=== PATIENT | male | born 1980 | race Two or more races ===

== ENCOUNTER 2024-08-13 18:31 | Emergency (ER) | payer MEDICAID, SELFPAY ==
[2024-08-13 18:32] VITALS: BMI 31.4
--- NOTE | 2024-08-13 19:38 | PC.NURSE ---
pt was not fund outside and did not answer when name was called in the lobby.
--- NOTE | 2024-08-13 21:00 | PC.NURSE ---
NO ANSWER FOR CALL BACK TO MAIN ED
--- NOTE | 2024-08-13 22:00 | PC.NURSE ---
NO ANSWER FOR CALL BACK TO MAIN ED
--- NOTE | 2024-08-13 22:11 | PC.NURSE ---
no answer for revital
== END 2024-08-13 22:02 | disposition left against medical advice (07) ==
LOC: SERX 08-14 01:26
PROVIDERS: Emergency Provider Emergency Medicine
DX: Z53.21 Procedure and treatment not carried out due to patient leaving prior to being seen by health care provider (principal)

== ENCOUNTER 2024-09-15 22:08 | Emergency (ER) | payer MEDICAID, SELFPAY ==
[2024-09-15 22:09] VITALS: BMI 29.4
[2024-09-15 22:19] VITALS: BP 102/61; PULSE 80; RESP 18; TEMP 36.6; O2SAT 96
--- NOTE | 2024-09-15 22:30 | XR_ITS ---
Examination: PA lateral chest 2 views Technique: Upright PA lateral chest 2 views Exam date and time: September 15, 2020 4:11 PM Indications: Onset chest pain today. Findings: Mild enlargement cardiac contour No pneumonia or pulmonary edema The osseous structures are intact Impression: No pneumonia or pulmonary edema
--- NOTE | 2024-09-15 22:30 | EKG_ITS ---
[facility] Test Date: 2024-09-15 Pat Name: OSBALDO HERNADEZ Department: Room: - Gender: Male [employer]: : [id number] Requested By: Regino Vasquez Order Number: [id number] Reading MD: Regino Vasquez Measurements Intervals [place] Rate: 100 P: 55 OK: 209 QRS: -39 QRSD: 126 T: 69 QT: 449 QTc: 581 Interpretive Statements SINUS TACHYCARDIA POSSIBLE LEFT ATRIAL ENLARGEMENT [-0.1mV P WAVE IN V1/V2] MARKED LEFT AXIS DEVIATION [QRS AXIS < -30] POSSIBLE LEFT VENTRICULAR HYPERTROPHY [VOLTAGE CRITERIA PLUS LAE OR QRS WIDENING] NONSPECIFIC T-WAVE ABNORMALITY Compared to ECG 04/05/2022 11:22:44 Left-axis deviation now present T-wave abnormality now present Sinus rhythm no longer present /store/S0/[id number]/[id number].pdf
--- NOTE | 2024-09-15 22:31 | PD.EDRME ---
Rapid Medical Screening Exam [facility] Arrival date/time: 09/15/24 22:08 44M with history of HTN, drug/alcohol abuse, and possible CHF presents to ED with 2 days of CP, SOB, and fatigue/weakness. Chief Complaint: Chest Pain Vital signs: Vital Signs Temperature 98 F 09/15/24 22:19 Pulse Rate 80 09/15/24 22:19 Respiratory Rate 18 09/15/24 22:19 Blood Pressure 102/61 09/15/24 22:19 Pulse Oximetry (%) 96 09/15/24 22:19 Oxygen Delivery Method Room Air 09/15/24 22:19
[2024-09-15 23:18] LABS: Basophils % (Auto) 1 % (0-2.5); Eosinophils # (Auto) 0.2 Thou/mm3 (0.0-0.5); Eosinophils % (Auto) 3 % (0-10); Hematocrit 52.5 % (41.0-53.0); Hemoglobin 18.2 g/dL (13.5-16.0); Immature Granulocytes % (Auto) 1 % (0-0); Immature Granulocytes Auto 0.03 Thou/mm3 (0.00-0.00); Lymphocytes # (Auto) 1.3 Thou/mm3 (1.0-4.8); Lymphocytes % (Auto) 21 % (10-50); Mean Corpuscular HGB Conc 34.7 g/dl (31.0-37.0); Mean Corpuscular Hemoglobin 29.3 pg (25.0-35.0); Mean Corpuscular Volume 84 fL (80-100); Monocytes # (Auto) 0.5 Thou/mm3 (0.0-0.8); Monocytes % (Auto) 8 % (0-12); Neutrophils # (Auto) 4.3 Thou/mm3 (1.8-7.7); Neutrophils % (Auto) 67 % (37-80); Nucleated Red Blood Cell % 0 /100 WBC (0); Platelet Count 195 Thou/mm3 (140-440); Red Blood Count 6.22 Miln/mm3 (4.50-5.90); White Blood Count 6.3 Thou/mm3 (3.8-10.6)
[2024-09-15 23:34] LABS: Alanine Aminotransferase 81 U/L (10-49); Albumin, Serum 4.7 gm/dL (3.5-5.0); Albumin/Globulin Ratio 1.5 (1.2-2.2); Alkaline Phosphatase 184 U/L (46-116); Anion Gap 8 (7-16); Aspartate Amino Transferase 80 U/L (0-34); BUN/Creatinine Ratio 10 Ratio (12-20); Blood Urea Nitrogen 11 mg/dL (9-23); Calcium 9.6 mg/dL (8.3-10.6); Calcium (Corrected) 9.6 mg/dL (8.5-10.1); Carbon Dioxide 25.5 mMol/L (20.0-31.0); Chloride 101 mMol/L (98-107); Creatinine (Component) 1.1 mg/dL (0.6-1.3); Estimated Creatinine Clearance 99.1 mL/min (>60); Globulin 3.2 gm/dL (2.3-3.5); Glucose 92 mg/dL (74-106); Osmolality,Calculated 267 (275-295); Potassium 4.6 mMol/L (3.4-5.1); Sodium 134 mMol/L (136-145); Total Protein 7.9 gm/dL (5.7-8.2); Troponin I < 0.020 ng/mL (0.0-0.045); eGFR > 60 See Note
[2024-09-15 23:46] LABS: B-Type Natriuretic Peptide 83 pg/mL (0-100)
--- NOTE | 2024-09-16 00:51 | PC.NURSE ---
NO ANSWER FOR MAIN ED
--- NOTE | 2024-09-16 01:01 | PD.EDADDENDU ---
Emergency Room Addendum Addendum Narrative: When I went to see the patient, I was told the patient eloped. I did not see the patient or evaluate the patient. Marquez Wyman MD
--- NOTE | 2024-09-16 01:11 | PC.NURSE ---
CALLED PT IN ER LOBBY AND OUTSIDE AND NO ANSWER AT THIS TIME.
--- NOTE | 2024-09-16 01:26 | PC.NURSE ---
CALLED PT IN ER LOBBY AND OUTSIDE OF ER AND NO ANSWER
== END 2024-09-16 01:27 | disposition left against medical advice (07) ==
LOC: SERX 22:40
PROVIDERS: Physician Assistant; Emergency Provider Emergency Medicine; PCP Nurse Practitioner Family
DX: R07.9 Chest pain, unspecified (principal); R06.02 Shortness of breath; R00.0 Tachycardia, unspecified; Z53.29 Procedure and treatment not carried out because of patient's decision for other reasons
CPT/HCPCS: 36415; 71046; 80053; 83880; 84484; 85025; 93005; 99281

== ENCOUNTER 2025-02-11 07:31 | Emergency (ER) | payer SELFPAY ==
[2025-02-11 07:33] VITALS: BMI 29.7
[2025-02-11 07:42] VITALS: BP 151/84; PULSE 114; RESP 17; TEMP 36.8; O2SAT 98
--- NOTE | 2025-02-11 07:49 | XR_ITS ---
Examination: Tibia-Fibula, left , 2 views Technique: Tibia-fibula AP lateral 2 views Date and time of exam: February 11, 2025 0828 hours INDICATIONS: Lower leg swelling and pain today FINDINGS: Mild osteopenia. No fracture or dislocation. No cortical bone destruction Moderate osteoarthritis tibiotalar joint IMPRESSION: Moderate osteoarthritis tibiotalar joint
--- NOTE | 2025-02-11 07:49 | XR_ITS ---
Examination: Foot, left, 3 views Technique: AP, oblique, lateral views foot, 3 views Date and time of exam: February 11, 2025 0820 hours INDICATIONS: Foot swelling and pain today no trauma FINDINGS: Old deformity bases proximal phalanges third and fourth digits Mild narrowing first tarsometatarsal joint, first metatarsophalangeal joint No cortical bone destruction No foreign body No acute fracture Significant osteoarthritis tibiotalar joint with sclerotic and cystic changes in the talus IMPRESSION: Significant osteoarthritis tibiotalar joint
--- NOTE | 2025-02-11 07:49 | XR_ITS ---
Examination: Duplex scan of the lower extremity, unilateral left Date and time of exam: February 11, 2025 0845 hours INDICATIONS: Left leg swelling and pain beginning today Technique: Duplex scan of the extremity veins using B-mode/grayscale imaging and Doppler spectral analysis and color flow Attention is directed to internal echogenicity, compression and augmentation involving these veins, color flow assessment, spectral analysis Findings: Major deep venous structures in the extremity demonstrate normal course and caliber. There is no evidence of deep vein thrombosis. Normal color flow and spectral analysis Impression: Negative for DVT..
--- NOTE | 2025-02-11 07:50 | XR_ITS ---
Examination: AP lateral chest 2 views TECHNIQUE: Sitting AP lateral chest 2 views Exam date and time: February 11, 2025 0813 hours Comparison September 15, 2024 INDICATIONS: Shortness of breath today. FINDINGS: Minimal opacity in the lingular segment left upper lobe Right lung clear Normal heart size IMPRESSION: Atelectasis versus early pneumonia in the lingular segment left upper lobe, clinical correlation advised
[2025-02-11 09:37] LABS: Basophils # (Auto) 0.1 Thou/mm3 (0.0-0.2); Basophils % (Auto) 1 % (0-2.5); Eosinophils % (Auto) 0 % (0-10); Hematocrit 49.1 % (41.0-53.0); Hemoglobin 16.8 g/dL (13.5-16.0); Immature Granulocytes % (Auto) 0 % (0-0); Immature Granulocytes Auto 0.04 Thou/mm3 (0.00-0.00); Lymphocytes # (Auto) 1.3 Thou/mm3 (1.0-4.8); Lymphocytes % (Auto) 11 % (10-50); Mean Corpuscular HGB Conc 34.2 g/dl (31.0-37.0); Mean Corpuscular Hemoglobin 30.3 pg (25.0-35.0); Mean Corpuscular Volume 89 fL (80-100); Monocytes # (Auto) 0.9 Thou/mm3 (0.0-0.8); Monocytes % (Auto) 7 % (0-12); Neutrophils # (Auto) 9.3 Thou/mm3 (1.8-7.7); Neutrophils % (Auto) 80 % (37-80); Nucleated Red Blood Cell % 0 /100 WBC (0); Platelet Count 196 Thou/mm3 (140-440); RDW Standard Deviation 42.1 fL (35.1-43.9); Red Blood Count 5.55 Miln/mm3 (4.50-5.90); White Blood Count 11.6 Thou/mm3 (3.8-10.6)
[2025-02-11 09:51] LABS: Alanine Aminotransferase 34 U/L (10-49); Albumin, Serum 5.3 gm/dL (3.5-5.0); Albumin/Globulin Ratio 1.5 (1.2-2.2); Alkaline Phosphatase 133 U/L (46-116); Anion Gap 10 (7-16); Aspartate Amino Transferase 31 U/L (0-34); BUN/Creatinine Ratio 17 Ratio (12-20); Bilirubin,Total 4.3 mg/dL (0.3-1.2); Blood Urea Nitrogen 19 mg/dL (9-23); Calcium 10.1 mg/dL (8.3-10.6); Calcium (Corrected) 10.1 mg/dL (8.5-10.1); Carbon Dioxide 27.6 mMol/L (20.0-31.0); Chloride 99 mMol/L (98-107); Creatinine (Component) 1.1 mg/dL (0.6-1.3); Estimated Creatinine Clearance 99.5 mL/min (>60); Globulin 3.5 gm/dL (2.3-3.5); Glucose 110 mg/dL (74-106); Osmolality,Calculated 277 (275-295); Potassium 3.4 mMol/L (3.4-5.1); Sodium 137 mMol/L (136-145); Total Protein 8.8 gm/dL (5.7-8.2); Uric Acid 8.5 mg/dL (3.7-9.2); eGFR > 60 See Note
[2025-02-11 10:11] LABS: Partial Thromboplastin Time 25.4 Seconds (22.0-36.0); Prothrombin Time 11.4 Seconds (9.0-12.2)
--- NOTE | 2025-02-11 10:21 | PD.EDLOWEX ---
Lower Extremity Injury RME/HPI General Chief Complaint: General Adult/Misc Complain Stated Complaint: L) LEG SWOLLEN, PITTING +1 X 1 DAY Time Seen by Provider: 02/11/25 07:34 Arrival date/time: 02/11/25 07:31 44-year-old male with history of CHF as well as methamphetamine abuse last used yesterday per patient presents emergency department today for complaints of left ankle pain and left lower leg pain and swelling Limitations: no limitations Related Data Previous Rx's ?Medication ?Instructions ?Recorded folic acid 1 mg tablet 1 mg PO QDAY #10 tabs 08/15/24 thiamine HCl (vitamin B1) 100 mg 100 mg PO QDAY #10 tabs 08/15/24 tablet diclofenac sodium 1 % topical gel 2.25 inch topical QID PRN pain 02/11/25 #100 grams Allergies Allergy/AdvReac Type Severity Reaction Status Date / Time aspirin Allergy Severe ULCERS Verified 02/11/25 07:38 codeine Allergy Severe HIVES, ABD Verified 02/11/25 07:38 PAIN, DIFF. BREATHING. hydrocodone Allergy Severe HIVES, ABD Verified 02/11/25 07:38 PAIN, DIFFICULTY BREATHING ibuprofen Allergy Severe ULCERS Verified 02/11/25 07:38 milk Allergy Severe ABD CRAMPS Verified 02/11/25 07:38 divalproex sodium (From Allergy Verified 02/11/25 07:38 Depakote) Review of Systems Review of Systems Systems Reviewed: All systems reviewed, normal except as documented Constitutional Constitutional: Reports system reviewed and no additional complaints, except as documented, Denies fever(s) and Denies headache(s) Eyes Eyes: Reports system reviewed and no additional complaints, except as documented and Denies blurry vision ENT Ears, Nose, Mouth, and Throat: Reports system reviewed and no additional complaints, except as documented, Denies headache(s), Denies nasal congestion and Denies nasal discharge Cardiovascular Cardiovascular: Reports system reviewed and no additional complaints, except as documented, Denies chest pain and Denies dyspnea Respiratory Respiratory: Reports system reviewed and no additional complaints, except as documented, Denies chest congestion, Denies cough and Denies dyspnea Gastrointestinal Gastrointestinal: Reports system reviewed and no additional complaints, except as documented and Denies abdominal pain Musculoskeletal Musculoskeletal: Reports system reviewed and no additional complaints, except as documented, Reports arthralgias, Denies deformity, Reports joint swelling, Denies numbness, Reports stiffness and Denies tingling Integumentary/Breasts Skin/Breast: Reports system reviewed and no additional complaints, except as documented and Denies rash Neurologic Neurologic: Reports system reviewed and no additional complaints, except as documented, Reports as per HPI, Denies headache(s), Denies numbness and Denies tingling Past Medical History Past Medical History NEUROLOGIC: Negative Neurological Disorders or Seizures CARDIAC: Positive Hypertension; Negative Cardiac Disorders, Congestive Heart Failure, Edema, Cellulitis or Varicose Veins RESPIRATORY: Positive Asthma; Negative Chronic Obstructive Pulmonary Disease (COPD) GASTROINTESTINAL: Positive Gastrointestinal Disorders, Pancreatitis, Gall Bladder Disease, Ulcer and Gastroesophageal Reflux Disease; Negative Hepatitis GENITOURINARY: Positive Genitourinary Disorders and Inguinal Hernia; Negative Renal Disease MUSCULOSKELETAL: Positive Musculoskeletal Disorders and Fractures ENDOCRINE: Negative Endocrine Disorders, Diabetes Mellitus Type 1 or Diabetes Mellitus Type 2 HEMATOLOGIC: Negative Blood Disorders or Sickle Cell Disease PSYCHO/SOCIAL: Positive Recreational Drug Use, Depression, Anxiety and Attention Deficit Hyperactivity Disorder OTHER HISTORY: Positive Hospitalization and Chicken Pox; Negative Autoimmune Disease, Shingles, Falls, Blood Transfusions, Blood Transfusion Reaction, Anesthesia Reactions, Chemotherapy, Radiation Therapy, MRSA, Measles, Mumps or Cancer Family History FAMILY HISTORY: Positive Family Psychiatric Problems, Family Cardiac Disorders, Family Gastrointestinal Problems, Family Cancer, Family Surgery and Family Anesthesia Reaction; Negative Family Respiratory Disorders Surgical History SURGICAL: Negative Cardiac Surgery or Pacemaker Social History SMOKING STATUS: Current every day smoker SUBSTANCE USE: marijuana and methamphetamine OCCUPATION: None ED Exam General Limitations: Present no limitations General appearance: Present alert and in no apparent distress Head Head exam: Present atraumatic Eye Eye exam: Present normal appearance, PERRL and EOMI ENT ENT exam: Present normal exam, normal oropharynx and mucous membranes moist Neck Neck exam: Present normal inspection, full ROM and trachea midline Chest Chest inspection: Present normal inspection and symmetric chest wall rise Respiratory Respiratory exam: Present normal lung sounds bilaterally Cardiovascular Cardiovascular exam: Present regular rate, normal rhythm and normal heart sounds Abdominal Exam Abdominal exam: Present soft and normal bowel sounds Extremities Exam Extremities exam: Present full ROM, tenderness, pedal edema and joint swelling; Absent calf tenderness Back Exam Back exam: Present normal inspection and full ROM Neurological Exam Neurological exam: Present alert, oriented X3, CN II-XII intact, normal gait and reflexes normal; Absent motor sensory deficit Psychiatric Psychiatric exam: Present normal affect and normal mood Skin Skin exam: Present warm, dry, intact and normal color; Absent rash Course Quality Measures none Orders Category Date Time Status US venous doppler LE LT Stat Exams 02/11/25 07:49 Completed XR chest 2V Stat Exams 02/11/25 07:50 Completed XR foot comp LT min 3V Stat Exams 02/11/25 07:49 Completed XR tibia fibula LT 2V Stat Exams 02/11/25 07:49 Completed CBC Stat Lab 02/11/25 09:20 Completed Comprehensive Metabolic Panel Stat Lab 02/11/25 09:20 Completed Partial Thromboplastin Time Stat Lab 02/11/25 09:20 Completed Prothrombin Time with INR Stat Lab 02/11/25 09:20 Completed Uric Acid Stat Lab 02/11/25 09:20 Completed Vital Signs Vital signs: Vital Signs Temperature 98.2 F 02/11/25 07:42 Pulse Rate 114 H 02/11/25 07:42 Respiratory Rate 17 02/11/25 07:42 Blood Pressure 151/84 H 02/11/25 07:42 Pulse Oximetry (%) 98 02/11/25 07:42 Oxygen Delivery Method Room Air 02/11/25 07:42 O2 saturation 98% room air within normal limits Extremity Injury, Lower MDM Narrative MDM Narrative:: 44-year-old male with history of CHF as well as methamphetamine abuse last used yesterday per patient presents emergency department today for complaints of left ankle pain and left lower leg pain and swelling On exam patient well-appearing patient does not appear ill or toxic On exam patient has mild swelling of the left ankle left lower leg Imaging obtained no acute emergent findings noted no acute DVT noted X-ray does show arthritis consistent with patient's symptoms Lab work obtained no acute emergent findings noted Patient discharged home in no distress to follow-up with primary care doctor in the next 24 to 48 hours and for any worsening symptoms to return to the ER immediately Patient data External records reviewed:: [facility] previous records Clinical information provided by:: patient Social determinants that could affect healthcare access:: substance use Patient has the following chronic illnesses:: Substance abuse How is presenting disease/condition affected by chronic disease/condition?: exacerbated by Evaluation data The following diagnostics were reviewed and interpreted by me:: lab results and radiology exam(s) Lab and/or radiology exams considered but not ordered:: Labs radiology obtain Interpretation Summary: Reviewed by me Medications / Prescriptions Medications or Prescriptions considered but not ordered:: Given Medication administrations:: Given Consultations Consultation(s) initiated? (list below): No Diagnosis Extremity Injury, Lower Differential Diagnosis: ankle sprain and strain, ankle fracture and other (Gout, CHF) Most likely diagnosis given after review of the tests above:: Ankle pain Admission Indicated Admission indicated?: not indicated Admission Request Was there a request for admission?: No Disposition Plan Disposition Plan: Discharge Discharge Attestation Discharge Attestation: The patient and all family members were given an opportunity to ask questions and understood the discharge instructions. Discharge instructions specifically effects, indications for sooner follow up or return to the emergency department, and the expected course of current diagnosis. Patient condition: Stable Discharge Plan Plan Patient Disposition: HOME (Self Care) Disposition Comment: Stable Prescriptions/Referrals Prescriptions/Med Rec: New diclofenac sodium 1 % gel 2.25 inch topical QID PRN (Reason: pain) Qty: 100 0RF Rx Instructions: apply to knee 4 times a day as needed No Action thiamine HCl (vitamin B1) 100 mg tablet 100 mg PO QDAY Qty: 10 0RF folic acid 1 mg tablet 1 mg PO QDAY Qty: 10 0RF Referrals: Merline Carrera PA-C ([facility]) [Primary Care Provider] - 02/12/25 Problem List Clinical Impression: Arthritis of left ankle, Methamphetamine abuse Patient/Caregiver Discharge Instructions Discharge Activity: activity as tolerated Education Materials: ED Drug Abuse Additional Instructions: Please follow up with your primary care doctor in the next 24-48hrs for any worsening symptoms return here immediately Print Language: Jordanian Stand Alone Forms: Leann Award Info., Patient Portal Info Letter LULÚ/JOSELINE Supervising Physician PA/JOSELINE Supervising Physician: Dr. ramírez
== END 2025-02-11 10:53 | disposition home or self-care (01) ==
PROVIDERS: Nurse Practitioner Primary Care; Emergency Provider Family Medicine; PCP Nurse Practitioner Family
DX: M19.072 Primary osteoarthritis, left ankle and foot (principal); F15.10 Other stimulant abuse, uncomplicated; I50.9 Heart failure, unspecified
CPT/HCPCS: 36415; 71046; 73590; 73630; 80053; 84550; 85025; 85610; 85730; 93971; 99284